=== PATIENT | female | born 1995 | race Caucasian/White ===

== ENCOUNTER → 2016-11-24 | Outpatient (CLI) | payer OTHER ==
--- NOTE | 2016-11-24 13:53 | Diagnostic Imaging Report ---
Transvaginal pelvic ultrasound. INDICATION: Threatened . FINDINGS: There is a single intrauterine with cardiac activity seen and cardiac rate of 124 beats per minute. The crown-rump length is at 6 weeks and 3 days of gestation corresponding to KOJO of 07/17/2017. The ovaries demonstrate no significant abnormality. A 2.4 cm central cystic area in the right ovary with thickened vascular rim is suggestive of a corpus luteum cyst. IMPRESSION: Single live intrauterine . KOJO is 07/17/2017. Dictated by: Dictated on workstation # [id number]
== END ==
LOC: RAD 10:51
PROVIDERS: ATTEND Obstetrics & Gynecology
DX: Z36 Encounter for antenatal screening of mother (principal); Z3A.01 Less than 8 weeks gestation of pregnancy
CPT/HCPCS: 76817

== ENCOUNTER → 2017-03-01 | Outpatient (CLI) | payer OTHER ==
--- NOTE | 2017-03-01 17:36 | Diagnostic Imaging Report ---
INDICATION: Size and dates. TECHNIQUE: Multiple real-time grayscale images were obtained over the gravid uterus. COMPARISON: None FINDINGS: There is a single living intrauterine in a variable presentation. There is normal volume of amniotic fluid. Placenta is anterior. There is no previa. The anatomical survey is unremarkable apart from limited visualization of the spine. The heart rate is 158 beats per minute and regular. Cervical length is 4.2 cm. The biometry correlates with a gestational age of 20 weeks 6 days. IMPRESSION: Single living intrauterine with sonographically estimated gestational age of 20 weeks 6 days and estimated date of confinement of July 13, 2017. Limited visualization of the spine due to positioning. Biometrical measurements are as follows: Biparietal 4.78 cm, age 20 weeks 4 days. Head circumference 18.21 cm, age 20 weeks 5 days. Abdominal circumference 15.62 cm, age 20 weeks 6 days. Femur length 3.41 cm, age 20 weeks 6 days. Sonographic estimate age: 20 weeks 6 days. Sonographic estimated date of delivery: 07/13/2017. Estimated Weight: 373 gm (+/- 55 gm). LMP percentile: 70%. heart rate: 158 beats per minute. number: 1 of 1. Dictated by: Dictated on workstation # [id number]
== END ==
LOC: RAD 15:45
PROVIDERS: ATTEND Obstetrics & Gynecology
DX: Z36 Encounter for antenatal screening of mother (principal); Z3A.20 20 weeks gestation of pregnancy
CPT/HCPCS: 76805

== ENCOUNTER 2017-07-07 19:50 | Inpatient (IN) | payer OTHER ==
[2017-07-07] VITALS (11 sets, daily range): BP systolic 118–140; BP diastolic 70–91
[2017-07-07] MEDS ORDERED: PREN-53 PO (20:04)
[2017-07-07] MEDS ORDERED: OXYTOCIN/NORMAL SALINE 500 ML IV SCH ×2 (20:21→20:55)
[2017-07-07] MEDS ORDERED: MINERAL OIL CONCENTRATE 99.9% 15 ML UDC TOP PRN (20:30)
[2017-07-07] MEDS: CATHETER FLUSH 10 ML SYR IV SCH (21:00)
[2017-07-07] MEDS: D5 LR IV SOLUTION 1,000 ML IV SCH (21:03)
[2017-07-07 21:19] LABS: BASOPHILS % (AUTO) 0 % (0-10); EOSINOPHILS # (AUTO) 0.1 10^3/uL (0.0-0.3); EOSINOPHILS % (AUTO) 0 % (0-10); LYMPHOCYTES # (AUTO) 2.8 X 10^3 (1.0-4.0); LYMPHOCYTES % (AUTO) 17 % (12-44); MEAN CORPUSCULAR HEMOGLOBIN 31 PG (25-34); MEAN CORPUSCULAR HGB CONC 35 G/DL (32-36); MEAN CORPUSCULAR VOLUME 87 FL (80-99); MEAN PLATELET VOLUME 11.4 FL (7.4-10.4); MONOCYTES # (AUTO) 1.5 X 10^3 (0.0-1.0); MONOCYTES % (AUTO) 9 % (0-12); NEUTROPHILS # (AUTO) 11.8 X 10^3 (1.8-7.8); NEUTROPHILS % (AUTO) 73 % (42-75); PLATELET COUNT 287 10^3/uL (130-400); RED BLOOD COUNT 4.22 10^6/uL (4.35-5.85); RED CELL DISTRIBUTION WIDTH 12.9 % (10.0-14.5); WHITE BLOOD COUNT 16.2 10^3/uL (4.3-11.0)
[2017-07-07 21:44] LABS: BAND NEUTROPHILS 2 %; BASOPHILS % (MANUAL) 0 %; EOSINOPHILS % (MANUAL) 1 %; LYMPHOCYTES % (MANUAL) 9 %; NEUTROPHILS % (MANUAL) 74 %
[2017-07-07 21:45] LABS: MICROCYTOSIS SLIGHT; REACTIVE LYMPHOCYTES 7 %
[2017-07-08] VITALS (48 sets, daily range): BP systolic 75–135; BP diastolic 38–90
[2017-07-08] MEDS ORDERED: SUFENTA 0.6MCG/ML BUPIVA 0.125 100 ML ONE (00:22)
[2017-07-08] MEDS ORDERED: LACTATED RINGERS 1,000 ML IV ONE ×2 (03:37→05:00)
[2017-07-08] MEDS ORDERED: NALOXONE 0.4 MG/ML 1 ML (NARCAN) VIAL IV PRN (03:45)
[2017-07-08] MEDS ORDERED: EPIDURAL (SUFENTA 0.6MCG/ML BUPIVA 0.125%) 100 ML BAG EPI SCH (03:45)
[2017-07-08] MEDS: D5 LR IV SOLUTION 1,000 ML IV SCH (04:56)
--- NOTE | 2017-07-08 05:46 | History & Physical-OB ---
OB - Chief Complaint & HPI Date/Time Date of Admission: Date of Admission: Jul 07, 2017 at 8:19 pm Time Seen by Provider: 05:15 Chief Complaint/History OB-Reason for Admission/Chief: Rupture of Membranes Hx : 1 Hx Para: 0 Expected Date of Delivery: Jul 17, 2016 Gestational Age in Weeks: 38 Other reason for admission: SROM, and contractions Admission Nurse Assessment Rev: Yes History of Labs A pos Antibody neg RI RPR NR HBsAg NR HIV NR GC neg GBS neg Allergies and Home Medications Allergies Coded Allergies: No Known Drug Allergies (Unverified , 07/07/17) Home Medications [id number]/Iron Fumarate/FA/Dss 1 Each Tablet, 1 EACH PO DAILY, (Reported) OB - History Hx of Present Care: Yes Obstetrical History Hx : 1 Hx Para: 0 Delivery History Adverse Rxn to Tranfusion: No Patient Past Medical History n/a Social History/Family History Recent Infectious Disease Expo: No Alcohol Use: Denies Use Recreational Drug Use: No Immunizations Hepatitis A: Yes Hepatitis B: Yes OB - Admission Exam Physical Exam Vitals: Vital Signs 07/08/17 07/08/17 02:15 04:00 Temp 98.1 Pulse 93 Resp 18 B/P (MAP) 103/53 (70) Pulse Ox 100 O2 Delivery Non Rebreather HEENT: NCAT Heart: Rhythm Normal Lungs: Clear Abdomen: Gravid Extremities: Normal Reflexes: Normal Cervical Dilatation: 2cm Effacement: 75% Station: -1 Membranes: Ruptured Amniotic Fluid: Clear Heart Rate: 130's Accelerations: Accelerations Present Decelerations: No Decelerations Short Term Variability: Present Assisted Variability: Average (6-25) Contractions on Admission: 6-10 Minutes Apart Intensity: Mild Labs Laboratory Tests Test 07/07/17 21:00 Range/Units White Blood Count 16.2 H 4.3-11.0 10^3/uL Red Blood Count 4.22 L 4.35-5.85 10^6/uL Hemoglobin 12.9 11.5-16.0 G/DL Hematocrit 37 35-52 % Mean Corpuscular Volume 87 80-99 FL Mean Corpuscular Hemoglobin 31 25-34 PG Mean Corpuscular Hemoglobin Concent 35 32-36 G/DL Red Cell Distribution Width 12.9 10.0-14.5 % Platelet Count 287 130-400 10^3/uL Mean Platelet Volume 11.4 H 7.4-10.4 FL Neutrophils (%) (Auto) 73 42-75 % Lymphocytes (%) (Auto) 17 12-44 % Monocytes (%) (Auto) 9 0-12 % Eosinophils (%) (Auto) 0 0-10 % Basophils (%) (Auto) 0 0-10 % Neutrophils # (Auto) 11.8 H 1.8-7.8 X 10^3 Lymphocytes # (Auto) 2.8 1.0-4.0 X 10^3 Monocytes # (Auto) 1.5 H 0.0-1.0 X 10^3 Eosinophils # (Auto) 0.1 0.0-0.3 10^3/uL Basophils # (Auto) 0.0 0.0-0.1 10^3/uL Neutrophils % (Manual) 74 % Lymphocytes % (Manual) 9 % Monocytes % (Manual) 7 % Eosinophils % (Manual) 1 % Basophils % (Manual) 0 % Band Neutrophils 2 % Reactive Lymphocytes 7 % Toxic Granulation 1+ Microcytosis SLIGHT OB - Assessment/Plan/Diagnosis Assessment Assessment: rupture of membranes Plan Induction Method: per Pitocin Protocol Discharge Diagnosis Diagnosis: 21 yo @ 38.5 weeks GBS neg Brock + SAMIRA GAY DO Jul 08, 2017 5:46 am
[2017-07-08] MEDS ORDERED: LIDOCAINE/EPI 2% 1:200,00 (XYLOCAINE) 10 ML VIAL ONE (06:05)
[2017-07-08] MEDS ORDERED: FAMOTIDINE 20MG/2ML IV (PEPCID) ONE (06:39)
[2017-07-08] MEDS: OXYTOCIN/NORMAL SALINE 500 ML IV SCH ×2 (07:36→08:14)
[2017-07-08] MEDS ORDERED: BENZOCAINE/MENTHOL (DERMOPLAST) 56 ML CAN TP PRN (07:45)
[2017-07-08] MEDS ORDERED: DIBUCAINE (NUPERCAINAL) 1% OINT 30 GM TOP PRN (07:45)
[2017-07-08] MEDS ORDERED: WITCH HAZEL(TUCKS) 40 EA JAR TOP PRN (07:45)
[2017-07-08] MEDS ORDERED: TETANUS,DIPTH,PERTUSS P/F (BOOSTRIX) 0.5 ML VIAL IM ONE (07:45)
[2017-07-08] MEDS ORDERED: HYDROcodone/APAP 5 MG/325 MG (LORTAB) TAB PO PRN (07:45)
[2017-07-08] MEDS ORDERED: MEASLES,MUMPS,RUBELLA 1 EA INJ SQ ONE (07:45)
--- NOTE | 2017-07-08 07:49 | OB Labor & Delivery Record ---
L&D History Date of Service Date of Service: Jul 08, 2017 History Expected Date of Delivery: Jul 17, 2016 Gestational Age in Weeks: 38 Hx : 1 Hx Para: 0 Complications Events: Routine care Operative Indications (Cesarea: N/A-Vaginal Delivery Intrapartal Events: None L&D Stage1 Stage One Onset of Labor - Date: Jul 08, 2017 Monitors and Tracing Monitor Mode: External Heart Rate: 150 Monitor Accelerations: Uniform Monitor Decelerations: Variable Station: -1 Mcc Variability: Average (6-10) Short Term Variability: Present Presentation: Vertex Vital Signs VS - Last 72 Hours, by Label 07/07/17 07/07/17 07/07/17 07/07/17 20:00 21:15 21:30 21:45 Temp 98.3 Pulse 84 86 101 Resp 18 18 18 18 B/P (MAP) 138/85 (102) 121/81 (94) 121/74 (90) O2 Delivery Room Air Room Air Room Air 07/07/17 07/07/17 07/07/17 07/07/17 22:00 22:15 22:30 22:45 Pulse 96 100 96 97 Resp 18 18 18 18 B/P (MAP) 129/70 (89) 140/83 (102) 122/87 (99) 120/87 (98) O2 Delivery Room Air Room Air Room Air Room Air 07/07/17 07/07/17 07/07/17 07/07/17 23:00 23:15 23:30 23:45 Pulse 90 83 96 99 Resp 18 18 18 18 B/P (MAP) 118/80 (93) 131/84 (100) 127/91 (103) 121/77 (92) O2 Delivery Room Air Room Air Room Air Room Air 07/08/17 07/08/17 07/08/17 07/08/17 00:00 00:15 00:30 00:45 Pulse 94 97 92 90 Resp 18 18 18 18 B/P (MAP) 130/90 (103) 123/60 (81) 129/62 (84) 119/63 (81) O2 Delivery Room Air Room Air Room Air Room Air 07/08/17 07/08/17 07/08/17 07/08/17 01:00 01:02 01:15 01:18 Temp 98.3 Pulse 110 114 99 94 Resp 18 18 18 18 B/P (MAP) 131/83 (99) 130/83 (99) 118/71 (87) 119/73 (88) Pulse Ox 98 99 98 O2 Delivery Room Air Room Air Room Air Room Air 07/08/17 07/08/17 07/08/17 07/08/17 01:20 01:23 01:26 01:30 Pulse 113 120 112 115 Resp 18 18 18 18 B/P (MAP) 117/65 (82) 108/56 (73) 100/56 (71) 103/57 (72) Pulse Ox 98 100 98 98 O2 Delivery Room Air Room Air Room Air Room Air 07/08/17 07/08/17 07/08/17 07/08/17 01:32 01:35 01:38 01:41 Pulse 80 100 109 97 Resp 18 18 18 18 B/P (MAP) 75/38 (50) 99/51 (67) 103/53 (70) 94/50 (65) Pulse Ox 98 98 99 98 O2 Delivery Room Air Room Air Room Air Room Air 07/08/17 07/08/17 07/08/17 07/08/17 01:45 02:00 02:15 02:30 Temp 98.1 Pulse 100 98 103 92 Resp 18 18 18 18 B/P (MAP) 93/50 (64) 118/66 (83) 132/58 (82) 112/77 (89) Pulse Ox 99 100 100 100 O2 Delivery Room Air Room Air Room Air Room Air 07/08/17 07/08/17 07/08/17 07/08/17 02:45 03:00 03:15 03:30 Pulse 98 103 94 84 Resp 18 18 18 18 B/P (MAP) 118/66 (83) 111/65 (80) 105/53 (70) Pulse Ox 100 100 100 100 O2 Delivery Room Air Room Air Non Rebreather Non Rebreather 07/08/17 07/08/17 07/08/17 07/08/17 03:45 04:00 04:15 04:30 Pulse 88 93 96 86 Resp 18 18 18 18 B/P (MAP) 112/57 (75) 103/53 (70) 110/58 (75) Pulse Ox 100 100 100 100 O2 Delivery Non Rebreather Non Rebreather Non Rebreather Non Rebreather 07/08/17 04:45 Pulse 88 Resp 18 B/P (MAP) 116/64 (81) Pulse Ox 100 O2 Delivery Non Rebreather Rupture of Membranes Amniotic Membrane Rupture Time: 1700 Amniotic Membrane Fluid Desc.: Clear Amniotic Fluid Membrane Tests: Nitrazine Positive Induction/Anesthesia Epidural Cath Placement - Time: 0108 Progress/Notes Pitocin augmentation was used until 0430 due to HR decelerations, labor continued at that point without any augmentation L&D Stage2 Stage Two Stage II Date: Jul 08, 2017 Monitors and Tracing Monitor Mode: External Heart Rate: 150 Monitor Accelerations: Uniform Monitor Decelerations: Variable Mcc Variability: Average (6-10) Short Term Variability: Present Position: Right Occiput Anterior Presentation: Vertex Cord Descript/Complications Cord Vessel Description: 3 Vessels Complications true knot in the cord x 1 Delivery Type Infant Delivery Method: Spontaneous Vaginal Anterior Shoulder: Right Episiotomy/Perineal Laceration Laceraction(s)/Extensions: Yes Episiotomy Description: Right Mediolateral Degree (describe repair) RML repaired in usual fashion using 3-0 rapide and 2-0 vicryl Condition of Infant Delivery 1 minute Comment: 2 5 minute Comment: 8 Notes Live male weight 6lbs 11oz Condition of Condition of Infant: Living Exam: No Observed Abnormalities Resuscitation Resuscitation: Bag and Mask L&D Stage3 Stage Three Stage III Date: Jul 08, 2017 Pictocin Pitocin Administration mu/min: 8 Pitocin ml/hr: 8 Pitocin Administration Comment: wide ope 30 mu at delivery of placenta Placenta Delivery Placenta Delivery: Spontaneous Delivery Summary Summary Estimated blood loss (mL): 350 Attending at delivery: Samira Gay DO Condition of Delivery Examined: Cervix Examined, Uterus Explored Post Hemorrhage: No Condition of Mother stable Condition of Infant (s) stable SAMIRA GAY DO Jul 08, 2017 07:49
--- NOTE | 2017-07-08 07:50 | Discharge Inst-Women's Service ---
Discharge Inst-Women's Serv Depart Medication/Instructions New, Converted or Re-Newed RX: RX on Chart Consults/Follow Up Additional Follow Up: Yes Orders/Referrals Dr. Gay in 6 weeks Activity Activity: Activity as Tolerated Driving Instructions: No Driving for 1 Week NO SMOKING: NO SMOKING Nothing Inside Vagina: No Douching, No [place], No Tampons Diet Discharge Diet: No Restrictions Symptoms to Report to : Bleeding Excessive, Pain Increased, Fever Over 101 Degrees F, Vaginal Bleeding Increase, Questions/Concerns For Any Problems or Questions: Contact Your Physician Skin/Wound Care Bathing Instructions: Shower (x 2 weeks or sitz baths) SAMIRA GAY DO Jul 08, 2017 07:50
[2017-07-08] MEDS ORDERED: Benzocaine/Menthol TP (07:52)
[2017-07-08] MEDS ORDERED: Hydrocodone Bit/Acetaminophen PO (07:52)
[2017-07-08] MEDS ORDERED: DOCU100C37 PO (07:52)
[2017-07-08] MEDS ORDERED: IBUP-1773 PO (07:52)
[2017-07-08] MEDS ORDERED: FERR-74 PO (07:52)
[2017-07-08] MEDS ORDERED: INFLUENZA TRIvalent 2017-2018 0.5 ML/45 MCG SYR IM ONE (08:30)
[2017-07-08] MEDS ORDERED: FAMOTIDINE 20MG/2ML IV (PEPCID) IVP ONE (09:00)
[2017-07-08] MEDS ORDERED: FERROUS SULF 325 MG (IRON) TAB PO SCH (09:00)
[2017-07-08] MEDS: IBUPROFEN 600 MG (MOTRIN) TAB PO SCH ×3 (10:14→23:57)
--- NOTE | 2017-07-08 13:25 | Anesthesia-Regional Post-Op ---
Regional Patient Condition Mental Status: Alert, Oriented x3 Circulation: Same as Pre-Op Headache: Absent Sensation: Full Recovery Motor Block: Absent Post Op Complications Complications None Follow Up Care/Instructions Patient Instructions None needed. Anesthesia/Patient Condition Patient is doing well, no complaints, stable vital signs, no apparent adverse anesthesia problems. No complications reported per nursing. KLEVER BERRY CRNA Jul 08, 2017 13:24
[2017-07-08] MEDS ORDERED: CATHETER FLUSH 10 ML SYR IV SCH (14:00)
[2017-07-08] MEDS: DOCUSATE SODIUM 100 MG (COLACE) CAP PO SCH ×2 (21:00→22:52)
[2017-07-08] MEDS: CATHETER FLUSH 10 ML SYR IV SCH (21:00)
[2017-07-09 04:58] LABS: BASOPHILS % (AUTO) 0 % (0-10); EOSINOPHILS # (AUTO) 0.1 10^3/uL (0.0-0.3); EOSINOPHILS % (AUTO) 0 % (0-10); LYMPHOCYTES # (AUTO) 2.7 X 10^3 (1.0-4.0); LYMPHOCYTES % (AUTO) 16 % (12-44); MEAN CORPUSCULAR HEMOGLOBIN 30 PG (25-34); MEAN CORPUSCULAR HGB CONC 34 G/DL (32-36); MEAN CORPUSCULAR VOLUME 90 FL (80-99); MEAN PLATELET VOLUME 10.5 FL (7.4-10.4); MONOCYTES # (AUTO) 1.8 X 10^3 (0.0-1.0); MONOCYTES % (AUTO) 10 % (0-12); NEUTROPHILS # (AUTO) 12.5 X 10^3 (1.8-7.8); NEUTROPHILS % (AUTO) 73 % (42-75); PLATELET COUNT 214 10^3/uL (130-400); RED BLOOD COUNT 3.55 10^6/uL (4.35-5.85); RED CELL DISTRIBUTION WIDTH 13.1 % (10.0-14.5)
[2017-07-09 06:27] VITALS: BP 104/65
[2017-07-09] MEDS: IBUPROFEN 600 MG (MOTRIN) TAB PO SCH ×2 (06:28→13:31)
[2017-07-09] MEDS ORDERED: PRENATAL VITAMIN 1 EA TAB PO SCH (07:00)
[2017-07-09 09:00] VITALS: BP 116/72
--- NOTE | 2017-07-09 11:11 | Progress Note-Standard ---
Standard Progress Note Progress Notes/Assess & Plan Date Seen by Provider: Jul 09, 2017 Time Seen by Provider: 10:45 Progress/Assessment & Plan Patient doing well PPD 1 NVD. Reports good pain control, ambulating and voiding freely without difficulty. Vital Sign - Last 24 Hours 07/08/17 07/08/17 07/08/17 07/09/17 13:00 18:45 22:43 06:27 Temp 97.7 98.1 97.1 98.4 Pulse 90 100 96 71 Resp 18 18 18 18 B/P (MAP) 107/70 (82) 119/76 (90) 113/75 (88) 104/65 (78) Pulse Ox 98 99 99 O2 Delivery Room Air Room Air Uterine fundus firm and palpated below umbilicus Laboratory Tests Test 07/09/17 04:50 Range/Units White Blood Count 17.0 H 4.3-11.0 10^3/uL Red Blood Count 3.55 L 4.35-5.85 10^6/uL Hemoglobin 10.7 L 11.5-16.0 G/DL Hematocrit 32 L 35-52 % Mean Corpuscular Volume 90 80-99 FL Mean Corpuscular Hemoglobin 30 25-34 PG Mean Corpuscular Hemoglobin Concent 34 32-36 G/DL Red Cell Distribution Width 13.1 10.0-14.5 % Platelet Count 214 130-400 10^3/uL Mean Platelet Volume 10.5 H 7.4-10.4 FL Neutrophils (%) (Auto) 73 42-75 % Lymphocytes (%) (Auto) 16 12-44 % Monocytes (%) (Auto) 10 0-12 % Eosinophils (%) (Auto) 0 0-10 % Basophils (%) (Auto) 0 0-10 % Neutrophils # (Auto) 12.5 H 1.8-7.8 X 10^3 Lymphocytes # (Auto) 2.7 1.0-4.0 X 10^3 Monocytes # (Auto) 1.8 H 0.0-1.0 X 10^3 Eosinophils # (Auto) 0.1 0.0-0.3 10^3/uL Basophils # (Auto) 0.0 0.0-0.1 10^3/uL Diagnosis: PPD 1 NVD P: Routine pp care PP precautions reviewed RTC in 6 weeks, dc today SAMIRA GAY DO Jul 09, 2017 11:11 am
[2017-07-09 13:15] VITALS: BP 115/72
[2017-07-09] MEDS: DOCUSATE SODIUM 100 MG (COLACE) CAP PO SCH (13:30)
== END 2017-07-09 15:35 | disposition home or self-care (01) | DRG 775 ==
LOC: LDRP 19:50 → WSo 19:50 → LDRP 20:19 → WSo 20:19 → LDRP 07-08 12:53
PROVIDERS: ADMIT Obstetrics & Gynecology; ATTEND Obstetrics & Gynecology
PROC: 10E0XZZ Delivery of Products of Conception, External Approach (ICD-10-PCS; principal; 2017-07-08)
PROC: 0W8NXZZ Division of Female Perineum, External Approach (ICD-10-PCS; 2017-07-08)
DX: O76 Abnormality in fetal heart rate and rhythm complicating labor and delivery (principal); O69.2XX0 Labor and delivery complicated by other cord entanglement, with compression, not applicable or unspecified; Z37.0 Single live birth; Z3A.38 38 weeks gestation of pregnancy
CPT/HCPCS: 36415; 85007; 85025; 85027; 86850; 86900; 86901; 99212

== ENCOUNTER → 2018-01-25 | Outpatient (CLI) | payer OTHER ==
[~2018-01-25] MED LIST: Benzocaine/Menthol TP; DOCU100C37 PO; FERR325T18 PO; Hydrocodone Bit/Acetaminophen PO; IBUP-1773 PO; PREN-53 PO
--- NOTE | 2018-01-25 08:28 | Diagnostic Imaging Report ---
PROCEDURE: US Gallbladder. TECHNIQUE: Multiple real-time grayscale images were obtained over the right upper quadrant in various projections. INDICATION: Right-sided abdominal pain as well as epigastric pain for two weeks. The visualized pancreas is unremarkable. The liver is normal in size. No discrete liver mass is identified. The gallbladder appears partially contracted but no gallstones or sludge are identified. No definite wall thickening or biliary duct dilatation is seen. Right kidney is unremarkable. There is no ascites. IMPRESSION: Essentially unremarkable gallbladder ultrasound. Dictated by: Dictated on workstation # [id number]
== END ==
LOC: RAD 06:39
PROVIDERS: ATTEND Nurse Practitioner Family
DX: R10.11 Right upper quadrant pain (principal); R10.13 Epigastric pain; R11.0 Nausea; R14.0 Abdominal distension (gaseous)
CPT/HCPCS: 76705